=== PATIENT | male | born 1940 | race Caucasian/White ===

== ENCOUNTER 2018-04-29 08:54 | Emergency (ER) | payer MEDICARE, BC ==
[~2018-04-29] VITALS: Ht 170.2 cm; Wt 63.5 kg
[~2018-04-29 08:54] MED LIST: APAP500 PO; CALCIUM 600 +1 EAC1 PO; LEVAQUIN 500 M500 MG PO; NEXIUM40 MG PO; TIMOLOL MA0.25 %/5 M OP; UNICOMPLEX M TA1 TA1 PO; VIAGRA50 MG PO
[2018-04-29 09:31] LABS: ABSOLUTE EOSINOPHILS 0.2 thou/uL (0.0-0.7); ABSOLUTE LYMPHOCYTES 1.1 thou/uL (0.8-5.3); ABSOLUTE MONOCYTES 0.4 thou/uL (0.0-1.2); ABSOLUTE NEUTROPHILS 3.4 thou/uL (1.6-8.1); BASOPHILS 0.7 %; HEMATOCRIT 49.5 % (42.0-52.0); HEMOGLOBIN 16.6 gm/dL (14.0-18.0); MCH 31.5 pg (26.0-34.0); MCHC 33.5 g/dL (28.0-37.0); MCV 94.3 fL (80.0-100.0); MONOCYTES 8.4 %; MPV 10.1 fl. (7.2-11.1); NUCLEATED RBCS 0 /100WBC; PLATELET COUNT* 186 thou/uL (150-400); POLYS 66.9 %; RBC 5.25 mil/uL (4.50-6.00); RDW-CV 15.2 % (10.5-14.5); WBC 5.1 thou/uL (4.0-11.0)
[2018-04-29 09:40] LABS: ANION GAP 8 mmol/L (7-16); BUN 15 mg/dL (7-18); CHLORIDE 107 mmol/L (98-107); CO2 25 mmol/L (21-32); GLUCOSE 109 mg/dL (70-99); POTASSIUM 3.7 mmol/L (3.5-5.1); SODIUM 140 mmol/L (136-145)
[2018-04-29 09:56] LABS: ALBUMIN 3.6 g/dL (3.4-5.0); ALKALINE PHOSPHATASE 83 U/L (46-116); NT-PRO BRAIN NAT PEPTIDE 83 pg/mL (<300); SGOT 19 U/L (15-37); SGPT 29 U/L (30-65); TOTAL BILIRUBIN 0.6 mg/dL (<0.1-1.0); TROPONIN-I LEVEL <0.06 ng/mL (<0.06)
[2018-04-29 10:23] LABS: URINE BILIRUBIN NEGATIVE (Negative); URINE BLOOD NEGATIVE (Negative); URINE CLARITY CLEAR; URINE COLOR YELLOW; URINE GLUCOSE-RANDOM NEGATIVE (Negative); URINE KETONES NEGATIVE (Negative); URINE LEUKOCYTES-REFLEX NEGATIVE (Negative); URINE NITRITE-REFLEX NEGATIVE (Negative); URINE PROTEIN NEGATIVE (Negative); URINE UROBILINOGEN 0.2 E.U./dl (0.2-1.0)
[2018-04-29 10:56] VITALS: BP 117/69
--- NOTE | 2018-04-29 17:21 | EKG ---
[place] [address] ELECTROCARDIOGRAM REPORT Name: JASPREET ALMONTE Room: [facility]#: [id number] Admission: 04/29/18 Attend Phys: Discharge: 04/29/18 Date of : 42 Report #: [id number] THIS REPORT FOR: //name// [facility] ED Test Date: 2018-04-29 Test Time: 09:12:16 Pat Name: JASPREET ALMONTE Department: Room: Gender: M Marketing Executive: DAT : 1940 Requested By: Mary Rowley Order Number: [id number] MD: Danielito Odell Measurements Intervals [place] Rate: 70 P: 23 WV: 154 QRS: 34 QRSD: 95 T: 43 QT: 377 QTc: 407 Interpretive Statements Sinus rhythm Compared to ECG 10/03/2014 10:06:33 No significant changes Electronically Signed On 04-29-2018 17:21:22 CDT by Danielito Odell [email or web address] <ELECTRONICALLY SIGNED> By: Danielito Odell MD, [facility] 04/29/18 1721 0912 1 Danielito Odell MD, FACC /EPI
== END 2018-04-29 10:56 | disposition home or self-care (01) ==
LOC: M.ERS 08:54
PROVIDERS: Personal Emergency Response Attendant
DX: G45.9 Transient cerebral ischemic attack, unspecified (principal); K21.9 Gastro-esophageal reflux disease without esophagitis; G47.33 Obstructive sleep apnea (adult) (pediatric); Z98.890 Other specified postprocedural states; Z88.8 Allergy status to other drugs, medicaments and biological substances